=== PATIENT | female | born 1945 | race Asian ===

== ENCOUNTER 2023-04-29 14:18 | Inpatient (IN) | payer MEDICARE, MEDICAID ==
[~2023-04-29] VITALS: Ht 149.9 cm; Wt 48.5 kg
[2023-04-29 14:30] VITALS: PULSE 80; RESP 23; O2SAT 99
[2023-04-29] MEDS ORDERED: ASPIRIN 81 MG CHEWABLE TABLET PO ONE (14:45)
[2023-04-29] MEDS ORDERED: NITROGLYCERIN 50 MG/D5% WATER 250 ML IV PRN (15:00)
[2023-04-29] MEDS ORDERED: ACETAMINOPHEN 325 MG TABLET PO PRN (15:15)
[2023-04-29] MEDS ORDERED: BISACODYL 10 MG RECTAL RECTAL SUPPOSITORY PR PRN (15:15)
[2023-04-29] MEDS ORDERED: ONDANSETRON HCL 4 MG/2 ML VIAL IVP PRN (15:15)
[2023-04-29 15:18] LABS: BASOPHILS % (AUTO) 0.5 % (0.0-2.0); EOSINOPHILS % (AUTO) 1.1 % (1.0-6.0); HEMATOCRIT 32.1 % (36-46); HEMOGLOBIN 10.5 g/dL (12.0-16.0); LYMPHOCYTES # (AUTO) 0.6 K/uL (1.0-4.8); LYMPHOCYTES % (AUTO) 6.2 % (22.0-44.0); MEAN CORPUSCULAR HGB CONC 32.8 G/dL (31.0-37.0); MEAN CORPUSCULAR VOLUME 91 fL (80-100); MONOCYTES # (AUTO) 0.4 K/uL (0.1-1.0); NEUTROPHILS # (AUTO) 7.9 K/uL (1.8-7.7); PLATELET COUNT (AUTO) 173 K/uL (150-450); RED BLOOD CELL COUNT(AUTO) 3.51 MIL/uL (4.00-5.20); RED CELL DISTRIBUTION WIDTH 17.2 % (11.5-14.5)
[2023-04-29 15:23] LABS: NEUTROPHILS % (AUTO) 88.2 % (40.0-70.0)
[2023-04-29 15:25] LABS: CALCIUM, TOTAL 8.4 mg/dL (8.8-10.5); CREATININE 6.6 mg/dL (0.60-1.30); POTASSIUM 4.8 mmol/L (3.5-5.1)
[2023-04-29 15:30] LABS: ALBUMIN 2.8 g/dL (3.4-5.0); BILIRUBIN,TOTAL 0.5 mg/dL (0.1-1.0); TOTAL PROTEIN, SERUM 7.5 g/dL (6.4-8.2)
[2023-04-29] MEDS ORDERED: DEXTROSE 50%-WATER 25 GM/50 ML SYRINGE IVP PRN (15:30)
[2023-04-29] MEDS ORDERED: HEPARIN SODIUM,PORCINE 5,000 UNITS/ML VIAL SQ SCH (16:00)
[2023-04-29 16:10] VITALS: PULSE 61; RESP 18; O2SAT 99
[2023-04-29 19:44] VITALS: PULSE 60; RESP 20; O2SAT 98
[2023-04-29] MEDS: DOCUSATE SODIUM 100 MG CAPSULE PO SCH (21:00)
[2023-04-29] MEDS ORDERED: CARVEDILOL 6.25 MG TABLET PO SCH (21:00)
[2023-04-29] MEDS: ATORVASTATIN CALCIUM 20 MG TABLET PO SCH (22:03)
[2023-04-29] MEDS ORDERED: HEPARIN SODIUM 25000 UNITS/D5W 250 ML IV PRN (22:45)
[2023-04-29] MEDS ORDERED: HEPARIN SODIUM,PORCINE 5,000 UNITS/ML VIAL IVP PRN ×2 (23:00)
[2023-04-29 23:33] LABS: INR 1.1 (0.9-1.1); PROTHROMBIN TIME 11.6 SEC (9.4-11.6)
[2023-04-30] VITALS (12 sets, daily range): BP systolic 129–205; BP diastolic 48–109; PULSE 64–108; RESP 20–36; TEMP 97.3–98.5; O2SAT 96
[2023-04-30 03:31] LABS: GLUCOMETER DEV NAME(LOC) ER.6
[2023-04-30 06:01] LABS: BASOPHILS % (AUTO) 0.5 % (0.0-2.0); EOSINOPHILS % (AUTO) 0.9 % (1.0-6.0); HEMATOCRIT 34.3 % (36-46); HEMOGLOBIN 10.9 g/dL (12.0-16.0); LYMPHOCYTES # (AUTO) 1.6 K/uL (1.0-4.8); LYMPHOCYTES % (AUTO) 11.9 % (22.0-44.0); MEAN CORPUSCULAR HEMOGLOBIN 29.1 pg (26.0-34.0); MEAN CORPUSCULAR HGB CONC 31.9 G/dL (31.0-37.0); MEAN CORPUSCULAR VOLUME 91 fL (80-100); MONOCYTES # (AUTO) 0.6 K/uL (0.1-1.0); MONOCYTES % (AUTO) 4.9 % (2.0-9.0); NEUTROPHILS # (AUTO) 10.7 K/uL (1.8-7.7); NEUTROPHILS % (AUTO) 81.8 % (40.0-70.0); PLATELET COUNT (AUTO) 221 K/uL (150-450); RED BLOOD CELL COUNT(AUTO) 3.76 MIL/uL (4.00-5.20); RED CELL DISTRIBUTION WIDTH 17.5 % (11.5-14.5)
[2023-04-30] MEDS: INSULIN LISPRO 100 UNITS/ML SQ PRN ×2 (06:31→11:42)
[2023-04-30] MEDS: AmLODIPine BESYLATE 10 MG TABLET PO SCH (08:52)
[2023-04-30] MEDS: ASPIRIN 81 MG CHEWABLE TABLET PO SCH (08:52)
[2023-04-30] MEDS: FAMOTIDINE 20 MG TABLET PO SCH (08:52)
[2023-04-30] MEDS: CARVEDILOL 12.5 MG TABLET PO SCH ×2 (08:52→20:00)
[2023-04-30] MEDS: DOCUSATE SODIUM 100 MG CAPSULE PO SCH ×2 (08:52→19:51)
[2023-04-30] MEDS: FOLIC ACID/VIT B COMPLEX AND C TABLET PO SCH (17:27)
[2023-04-30] MEDS: ATORVASTATIN CALCIUM 20 MG TABLET PO SCH (20:00)
[2023-04-30] MEDS: MELATONIN 3 MG TABLET PO PRN (20:21)
[2023-05-01] VITALS (17 sets, daily range): BP systolic 129–166; BP diastolic 46–74; PULSE 60–69; RESP 16–22; TEMP 97.2–98.8
[2023-05-01 05:23] LABS: EOSINOPHILS % (AUTO) 3.7 % (1.0-6.0); HEMATOCRIT 24.6 % (36-46); HEMOGLOBIN 8.1 g/dL (12.0-16.0); LYMPHOCYTES # (AUTO) 2.5 K/uL (1.0-4.8); LYMPHOCYTES % (AUTO) 33.1 % (22.0-44.0); MEAN CORPUSCULAR HEMOGLOBIN 29.9 pg (26.0-34.0); MEAN CORPUSCULAR HGB CONC 32.7 G/dL (31.0-37.0); MEAN CORPUSCULAR VOLUME 91 fL (80-100); MONOCYTES # (AUTO) 0.7 K/uL (0.1-1.0); MONOCYTES % (AUTO) 9.3 % (2.0-9.0); NEUTROPHILS % (AUTO) 52.9 % (40.0-70.0); PLATELET COUNT (AUTO) 171 K/uL (150-450); RED BLOOD CELL COUNT(AUTO) 2.69 MIL/uL (4.00-5.20)
[2023-05-01 05:31] LABS: CALCIUM, TOTAL 8.2 mg/dL (8.8-10.5); CREATININE 5.59 mg/dL (0.60-1.30); POTASSIUM 4.8 mmol/L (3.5-5.1)
[2023-05-01] MEDS ORDERED: SODIUM CHLORIDE 0.9% 2,000 ML ONE (05:59)
[2023-05-01] MEDS: DOCUSATE SODIUM 100 MG CAPSULE PO SCH ×2 (09:00→20:14)
[2023-05-01] MEDS: ASPIRIN 81 MG CHEWABLE TABLET PO SCH (10:03)
[2023-05-01] MEDS: CARVEDILOL 12.5 MG TABLET PO SCH ×2 (10:04→20:15)
[2023-05-01] MEDS: FOLIC ACID/VIT B COMPLEX AND C TABLET PO SCH (10:05)
[2023-05-01] MEDS: FAMOTIDINE 20 MG TABLET PO SCH (10:06)
[2023-05-01] MEDS: AmLODIPine BESYLATE 10 MG TABLET PO SCH (10:10)
[2023-05-01 11:08] LABS: HEMATOCRIT 26.8 % (36-46); HEMOGLOBIN 8.8 g/dL (12.0-16.0)
[2023-05-01 18:26] LABS: GLUCOMETER DEV NAME(LOC) 5S.1B
[2023-05-01] MEDS: ATORVASTATIN CALCIUM 20 MG TABLET PO SCH (20:15)
[2023-05-01] MEDS: MELATONIN 3 MG TABLET PO PRN (20:15)
[2023-05-02] VITALS: PULSE 60
[2023-05-02 00:36] LABS: GLUCOMETER DEV NAME(LOC) 5S.1B
[2023-05-02 00:55] VITALS: BP 159/49; PULSE 56; RESP 24; TEMP 98
[2023-05-02 04:40] VITALS: BP 154/55; PULSE 59; RESP 24; TEMP 98.2
[2023-05-02 04:57] VITALS: PULSE 54
[2023-05-02 08:05] LABS: BASOPHILS % (AUTO) 1.1 % (0.0-2.0); LYMPHOCYTES # (AUTO) 1.7 K/uL (1.0-4.8); LYMPHOCYTES % (AUTO) 27.7 % (22.0-44.0); MEAN CORPUSCULAR HEMOGLOBIN 29.8 pg (26.0-34.0); MEAN CORPUSCULAR HGB CONC 33.2 G/dL (31.0-37.0); MEAN CORPUSCULAR VOLUME 90 fL (80-100); MONOCYTES # (AUTO) 0.6 K/uL (0.1-1.0); MONOCYTES % (AUTO) 10.7 % (2.0-9.0); NEUTROPHILS # (AUTO) 3.4 K/uL (1.8-7.7); NEUTROPHILS % (AUTO) 56.5 % (40.0-70.0); PLATELET COUNT (AUTO) 181 K/uL (150-450); RED BLOOD CELL COUNT(AUTO) 2.68 MIL/uL (4.00-5.20); RED CELL DISTRIBUTION WIDTH 16.5 % (11.5-14.5)
[2023-05-02] MEDS: FOLIC ACID/VIT B COMPLEX AND C TABLET PO SCH (08:32)
[2023-05-02] MEDS: CARVEDILOL 12.5 MG TABLET PO SCH (08:32)
[2023-05-02] MEDS: AmLODIPine BESYLATE 10 MG TABLET PO SCH (08:32)
[2023-05-02] MEDS: FAMOTIDINE 20 MG TABLET PO SCH (08:32)
[2023-05-02] MEDS: DOCUSATE SODIUM 100 MG CAPSULE PO SCH (08:32)
[2023-05-02] MEDS: ASPIRIN 81 MG CHEWABLE TABLET PO SCH (08:32)
[2023-05-02] MEDS: INSULIN LISPRO 100 UNITS/ML SQ PRN (12:09)
[2023-05-02 19:21] LABS: GLUCOMETER DEV NAME(LOC) 5S.1B
[2023-05-04] MEDS ORDERED: EPOETIN ALFA 10,000 UNITS/ML VIAL SQ SCH (09:00)
== END 2023-05-02 16:10 | disposition home or self-care (01) | DRG 280 ==
LOC: EMS 14:18 → ICUN 16:08 → ICU 04-30 03:00 → 5S 05-01 13:35
PROVIDERS: ADMIT Internal Medicine; ATTEND Internal Medicine
PROC: 5A09357 Assistance with Respiratory Ventilation, Less than 24 Consecutive Hours, Continuous Positive Airway Pressure (ICD-10-PCS; 2023-04-29)
PROC: 5A1D70Z Performance of Urinary Filtration, Intermittent, Less than 6 Hours Per Day (ICD-10-PCS; principal; 2023-04-30)
PROC: 5A09357 Assistance with Respiratory Ventilation, Less than 24 Consecutive Hours, Continuous Positive Airway Pressure (ICD-10-PCS; 2023-04-30)
PROC: 5A1D70Z Performance of Urinary Filtration, Intermittent, Less than 6 Hours Per Day (ICD-10-PCS; 2023-05-01)
DX: I16.1 Hypertensive emergency (principal); I50.33 Acute on chronic diastolic (congestive) heart failure; I21.A1 Myocardial infarction type 2; J96.01 Acute respiratory failure with hypoxia; N18.6 End stage renal disease; I13.2 Hypertensive heart and chronic kidney disease with heart failure and with stage 5 chronic kidney disease, or end stage renal disease; I25.10 Atherosclerotic heart disease of native coronary artery without angina pectoris; D63.8 Anemia in other chronic diseases classified elsewhere; E11.22 Type 2 diabetes mellitus with diabetic chronic kidney disease; G89.29 Other chronic pain; M54.9 Dorsalgia, unspecified; E78.5 Hyperlipidemia, unspecified; D63.1 Anemia in chronic kidney disease; I08.0 Rheumatic disorders of both mitral and aortic valves; Z95.1 Presence of aortocoronary bypass graft; Z99.2 Dependence on renal dialysis; Z79.4 Long term (current) use of insulin
CPT/HCPCS: 71045; 80048; 80053; 82962; 84484; 85014; 85018; 85025; 85610; 85730; 87081; 87340; 90935; 93005; 93306; 94660; 97163; 97530; 99291; G0378; J1644; J2405; J7030; 36415-L1; 36415-TC